=== PATIENT | female | born 1990 | race Caucasian/White ===

== ENCOUNTER 2017-10-21 19:24 | Emergency (ER) | payer OTHER ==
[2017-10-21 19:34] VITALS: BP 135/94
[2017-10-21] MEDS ORDERED: Lidocaine 1% with EPINEPHrine 1:100,000 20 ML MDV INJECT ONE (19:41)
[2017-10-21] MEDS ORDERED: Diphtheria,Pertussis(Acell),Tetanus Vaccine 0.5 ML SDV IM ONE (20:08)
--- NOTE | 2017-10-21 20:15 | EDM.PDOC ---
ED HPI GENERAL MEDICAL PROBLEM - General Chief Complaint: Syncope Stated Complaint: INJURY TO HAND POSS HEAD INJURY Time Seen by Provider: 10/21/17 19:35 Source of Information: Reports: Patient History Limitations: Reports: No Limitations - History of Present Illness INITIAL COMMENTS - FREE TEXT/NARRATIVE: 27 y/o F with left ring finger injury. Was cutting a plastic shutter with a razor and accidently sliced the palmar surface of her L ring finger. Fiance helped her wash it out at home. She passed out while he was rinsing it. States she felt nauseated, became very pale, and passed out for about 5 seconds. She slightly hit her head on a stove on her way down. No head wound. She came around after 5 seconds. She continued to feel nauseated and had two repeat episodes of very brief passing out prior to arrival. She feels fine now. No CP/ SOB/palpitations. No vomiting. No recent illness. Feels well now. Left 4-Ring finger Pain Score (Numeric/FACES): 4 - Related Data Allergies Allergy/AdvReac Type Severity Reaction Status Date / Time No Known Allergies Allergy Verified 03/28/15 23:15 Home Meds: Home Meds Albuterol [Proventil HFA] 2 puff INH Q6H PRN #1 inhaler 03/29/15 [Rx] Gabapentin [Neurontin] 600 mg PO BID 10/21/17 [History] Methylphenidate [Ritalin] 20 mg PO BID 10/21/17 [History] Verapamil [Calan SR] 240 mg PO DAILY 10/21/17 [History] traMADol [Ultram] 50 mg PO Q6H PRN 10/21/17 [History] Past Medical History Cardiovascular History: Reports: Hypertension Other Respiratory History: seasonal allergies Neurological History: Reports: Migraines Social & Family History - Caffeine Use Caffeine Use: Reports: Coffee, Soda, Tea - Recreational Drug Use Recreational Drug Use: No ED ROS GENERAL - Review of Systems Review Of Systems: See Below Constitutional: Denies: Fever HEENT: Reports: No Symptoms Respiratory: Denies: Shortness of Breath, Cough Cardiovascular: Denies: Chest Pain Endocrine: Reports: No Symptoms GI/Abdominal: Denies: Abdominal Pain : Reports: No Symptoms Musculoskeletal: Reports: Hand Pain. Denies: Neck Pain Skin: Reports: No Symptoms Neurological: Reports: Syncope Psychiatric: Reports: No Symptoms Hematologic/Lymphatic: Reports: No Symptoms. Denies: Easy Bleeding - Physical Exam Exam: See Below Exam Limited By: No Limitations General Appearance: Alert, WD/WN, No Apparent Distress Eye Exam: Bilateral Eye: Normal Inspection Ears: Normal External Exam Nose: Normal Inspection Throat/Mouth: Normal Inspection, Normal Oropharynx, Normal Voice, No Airway Compromise Head Exam: Atraumatic, Normocephalic Neck: Normal Inspection, Supple, Non-Tender, Full Range of Motion Respiratory/Chest: No Respiratory Distress, Lungs Clear, Normal Breath Sounds Cardiovascular: Normal Peripheral Pulses, Regular Rate, Rhythm, No Edema, No Murmur GI/Abdominal: Soft, Non-Tender, No Distention. No: Rebound Neuro Exam (Abbreviated): Alert, Oriented, CN II-XII Intact, Normal Cognition, No Motor/Sensory Deficits Back Exam: Normal Inspection Extremities: Other (L hand: approx 2.5 cm laceration extends across palmar surface of L ring finger from just distal of MCP joint to just proximal to PIP joint. Linear. Subcutaneous. No foreign material. ) Psychiatric: Normal Affect, Normal Mood Skin Exam: Warm, Dry, Intact, Normal Color, No Rash ED PROCEDURES - Laceration/Wound Repair Left Lower Proximal Finger Lac/wound length in cm: 5 Appearance: Superficial, Subcutaneous Distal NVT: Neuro & Vascular Intact, No Tendon Injury Anesthetic Type: Digital Local Anesthetic Volume: 2cc Skin Prep: Providone-Iodine (Betadine) Exploration/Debridement/Repair: Wound Explored, In a Bloodless Field, Explored to Base, No Foreign Material Found Closed with: Sutures Suture Size: 4-0 # of Sutures: 4 Suture Type: Nylon, Interrupted, Running # of Sutures: 4 Drain Placement: No Sterile Dressing Applied: Nurse Tetanus Status Addressed: Yes Complications: No Course - Vital Signs Last Recorded V/S: Last Vital Signs Temp 36.3 C 10/21/17 19:32 Pulse 71 10/21/17 19:32 Resp 20 10/21/17 19:32 BP 135/94 H 10/21/17 19:32 Pulse Ox 95 10/21/17 19:32 - Orders/Labs/Meds Orders: Active Orders 24 hr Category Date Time Status EKG 12 Lead [EKG Documentation Completion] [RC] STAT Care 10/21/17 19:41 Active Vaccines to be Administered [RC] PER UNIT ROUTINE Care 10/21/17 20:08 Active Meds: Medications Discontinued Medications Generic Name Dose Route Start Last Admin Trade Name Margarita PRN Reason Stop Dose Admin Diphtheria/Tetanus/Acell Pertussis 0.5 ml 10/21/17 20:08 10/21/17 20:16 Adacel IM 10/21/17 20:09 0.5 ml .ONCE ONE Administration Lidocaine/Epinephrine 20 ml 10/21/17 19:41 10/21/17 20:16 Xylocaine 1% With Epinephrine 1:100,000 INJECT 10/21/17 19:42 20 ml ONETIME ONE Administration - Re-Assessments/Exams Free Text/Narrative Re-Assessment/Exam: 10/21/17 20:14 EKG shows normal sinus rhythm, incomplete RBBB, no prior available for comparison, no significant ST/T abnormality. Suspect vasovagal etiology of syncope given the circumstances. Departure - Departure Time of Disposition: 20:44 Disposition: Home, Self-Care 01 Clinical Impression: Vasovagal syncope Syncope Qualifiers: Syncope type: vasovagal syncope Qualified Code(s): R55 - Syncope and collapse Finger laceration Qualifiers: Encounter type: initial encounter Finger: index finger Damage to nail status: without damage Foreign body presence: without foreign body Laterality: left Qualified Code(s): S61.211A - Laceration without foreign body of left index finger without damage to nail, initial encounter - Discharge Information Referrals: Yareli Bustamante NP [Primary Care Provider] - Forms: ED Department Discharge Additional Instructions: 1. Keep wound clean and dry. OK to wash gently with water and soap starting tomorrow. After washing, dry gently and apply antibiotic ointment. Keep wound covered. 2. Sutures should be removed in approximately 10 days. You may schedule suture removal at the walk in clinic ([phone]) or have your primary care provider remove them. 3. Follow up with your primary doctor or return to the ED for any signs of infection, such as increased swelling, warmth, redness, or pus under the wound. - My Orders Last 24 Hours: My Active Orders 10/21/17 19:41 EKG 12 Lead [EKG Documentation Completion] [RC] STAT 10/21/17 20:08 Vaccines to be Administered [RC] PER UNIT ROUTINE - Assessment/Plan Last 24 Hours: My Active Orders 10/21/17 19:41 EKG 12 Lead [EKG Documentation Completion] [RC] STAT 10/21/17 20:08 Vaccines to be Administered [RC] PER UNIT ROUTINE
== END 2017-10-21 20:53 | disposition home or self-care (01) ==
LOC: JD.ED 19:24
DX: S61.215A Laceration without foreign body of left ring finger without damage to nail, initial encounter (principal); R55 Syncope and collapse; W26.8XXA Contact with other sharp object(s), not elsewhere classified, initial encounter; Z23 Encounter for immunization; Z79.899 Other long term (current) drug therapy; I10 Essential (primary) hypertension; Z91.09 Other allergy status, other than to drugs and biological substances
CPT/HCPCS: 12002; 90471; 90715; 93005; 99283-25

== ENCOUNTER 2018-08-29 05:45 | Emergency (ER) | payer OTHER ==
[2018-08-29 05:55] VITALS: BP 144/80
[2018-08-29] MEDS ORDERED: Clindamycin HCl 150 MG Cap PO ONE (06:15)
[2018-08-29] MEDS ORDERED: Ondansetron 4 MG Tab.DIS PO ONE (06:16)
--- NOTE | 2018-08-29 06:21 | EDM.PDOC ---
ED HPI GENERAL MEDICAL PROBLEM - General Chief Complaint: ENT Problem Stated Complaint: TOOTH PAIN Time Seen by Provider: 08/29/18 06:05 Source of Information: Reports: Patient, RN Notes Reviewed - History of Present Illness INITIAL COMMENTS - FREE TEXT/NARRATIVE: 28 year old female comes in with right dental pain. This started yesterday, very bothersome through the night making it difficult to sleep. She did have some mild trouble with this tooth about a week ago as well. She is not seen a dentist recently. States that could feel swollen, no fever or chills. Right Tooth/Teeth Pain Score (Numeric/FACES): 10 - Related Data Allergies Allergy/AdvReac Type Severity Reaction Status Date / Time No Known Allergies Allergy Verified 03/28/15 23:15 Home Meds: Home Meds Gabapentin [Neurontin] 600 mg PO BID 10/21/17 [History] Clindamycin HCl 300 mg PO Q8HR #20 capsule 08/29/18 [Rx] traMADol [Ultram] 50 mg PO Q6H PRN #20 tab 08/29/18 [Rx] Past Medical History Cardiovascular History: Reports: Hypertension Other Respiratory History: seasonal allergies Neurological History: Reports: Migraines Social & Family History - Tobacco Use Smoking Status *Q: Current Every Day Smoker Years of Tobacco use: 10 Packs/Tins Daily: 0.3 - Caffeine Use Caffeine Use: Reports: None - Recreational Drug Use Recreational Drug Use: No ED ROS ENT - Review of Systems Review Of Systems: See Below Constitutional: Denies: Fever, Chills HEENT: Reports: Dental Pain Respiratory: Denies: Shortness of Breath Cardiovascular: Denies: Chest Pain GI/Abdominal: Denies: Abdominal Pain, Vomiting Musculoskeletal: Reports: No Symptoms Skin: Reports: No Symptoms ED EXAM, ENT - Physical Exam Exam: See Below General Appearance: Alert, Moderate Distress Mouth/Throat: Dental Tenderness (There is mild tenderness of the right posterior molar. There is mild swelling of the going posterior to the molar, no active drainage) Head: No: Facial Swelling Neck: Supple. No: Lymphadenopathy (L), Lymphadenopathy (R) Respiratory/Chest: No Respiratory Distress, Lungs Clear, Normal Breath Sounds Cardiovascular: Regular Rate, Rhythm Neurological: Alert, Oriented, No Motor/Sensory Deficits Skin: Warm, Dry, Normal Color, No Rash Course - Vital Signs Last Recorded V/S: Last Vital Signs Temp 98.1 F 08/29/18 05:51 Pulse 87 08/29/18 05:51 Resp 16 08/29/18 05:51 BP 144/80 H 08/29/18 05:51 Pulse Ox 96 08/29/18 05:51 - Orders/Labs/Meds Meds: Medications Discontinued Medications Generic Name Dose Route Start Last Admin Trade Name Freq PRN Reason Stop Dose Admin Clindamycin HCl 300 mg 08/29/18 06:15 08/29/18 06:21 Cleocin PO 08/29/18 06:16 300 mg ONETIME ONE Administration Ondansetron HCl 4 mg 08/29/18 06:16 08/29/18 06:20 Zofran Odt PO 08/29/18 06:17 4 mg ONETIME ONE Administration Departure - Departure Time of Disposition: 06:30 Disposition: Home, Self-Care 01 Condition: Fair Clinical Impression: Pain, dental - Discharge Information Prescriptions: Clindamycin HCl 300 mg PO Q8HR #20 capsule traMADol [Ultram] 50 mg PO Q6H PRN #20 tab PRN Reason: Pain Referrals: Yareli Bustamante NP [Primary Care Provider] - Forms: ED Department Discharge Additional Instructions: Clindamycin 300 mg 2 times daily for 1 week, Aleve 2 tabs twice daily with food to be easier on her stomach, you may take Tylenol in addition up to 3 times daily for extra pain relief. You may take tramadol if needed for severe pain not adequately relieved by the Aleve and Tylenol, you also may take gabapentin previously prescribed until symptoms improving. See dentist as soon as possible. Consider Dr. Ng at [place], he may be easier to get into then are dentist here in [facility]. Return to ED as needed if symptoms worsening in any way.
== END 2018-08-29 06:40 | disposition home or self-care (01) ==
LOC: JD.ED 05:45
DX: K08.89 Other specified disorders of teeth and supporting structures (principal); I10 Essential (primary) hypertension; F17.210 Nicotine dependence, cigarettes, uncomplicated; Z79.899 Other long term (current) drug therapy
CPT/HCPCS: 99282; A9270; 99283